=== PATIENT | male | born 1955 | race African-American/Black ===

== ENCOUNTER 2016-07-26 10:27 | Emergency (ER) | payer OTHER ==
[2016-07-26 10:39] VITALS: RESP 16
--- NOTE | 2016-07-26 11:12 | ED ---
General Adult HPI - General Chief complaint: Extremity Injury, Lower Stated complaint: BOTH KNEES INJURED IN FALL - [facility] Time Seen by Provider: 07/26/16 10:45 Source: patient, RN notes reviewed Mode of arrival: wheelchair Limitations: no limitations - History of Present Illness Initial comments: Patient is 61-year-old male who presents emergency room today with chief complaint of fall occurred yesterday. He does note that he was at work when he missed the last step going down some stairs fell down onto both the right and left knee. Patient does admit to increased pain to the right knee with some swelling. States worse with both flexion and extension. Patient admits to some mild pain that began this morning to the left knee as well. Patient denies any head injury or loss conscious. He denies any other complaints or associated symptoms. Patient denies any recent fever, chills, shortness of breath, chest pain, back pain, abdominal pain, nausea or vomiting, numbness or tingling, dysuria or hematuria, constipation or diarrhea, headaches or visual changes, or any other complaints. - Related Data Home Medications Medication Instructions Recorded Confirmed Atenolol 25 mg PO DAILY 07/26/16 07/26/16 Atorvastatin [Lipitor] 20 mg PO DAILY 07/26/16 07/26/16 Insulin Detemir [Levemir Flextouch] 14 units SQ HS 07/26/16 07/26/16 Multivitamin [Men's Multi-Vitamin] 1 each PO DAILY 07/26/16 07/26/16 Pioglitazone [Actos] 30 mg PO DAILY 07/26/16 07/26/16 amLODIPine BES/OLMESARTAN MED 1 tab PO DAILY 07/26/16 07/26/16 [Roger 5-20 mg Tablet] glipiZIDE XL [Glucotrol Xl] 10 mg PO DAILY 07/26/16 07/26/16 Allergies Allergy/AdvReac Type Severity Reaction Status Date / Time No Known Allergies Allergy Verified 07/26/16 10:39 Review of Systems ROS Statement: Those systems with pertinent positive or pertinent negative responses have been documented in the HPI. ROS Other: All systems not noted in ROS Statement are negative. Past Medical History Past Medical History: Diabetes Mellitus, Hyperlipidemia, Hypertension History of Any Multi-Drug Resistant Organisms: None Reported Past Surgical History: No Surgical Hx Reported Past Psychological History: No Psychological Hx Reported Smoking Status: Never smoker Past Alcohol Use History: Rare Past Drug Use History: None Reported General Exam - General Exam Comments Initial Comments: General: The patient is awake and alert, in no distress, and does not appear acutely ill. Neck: The neck is supple, there is no tenderness or JVD. Cardiovascular: There is a regular rate and rhythm. No murmur, rub or gallop is appreciated. Respiratory: Lungs are clear to auscultation, respirations are non-labored, breath sounds are equal. No wheezes, stridor, rales, or rhonchi. Musculoskeletal: Patient does have mild swelling and effusion to the right knee. Mild abrasion anteriorly. Superficial no active bleeding. Patient shows good range of motion both flexion and extension -10-15 with flexion. Able to fully extend. Shows full range of motion of the left knee. Sensations are intact pulses equal bilaterally 2+. Strength is 5/5 bilaterally. Patient does have tenderness to anterior and medial aspects of the right knee. Tender with valgus and varus stress. No bony tenderness to the left knee on exam. Negative valgus varus stress. Negative Eliezer's bilaterally. Neurological: A&O x 3. CN II-XII intact, There are no obvious motor or sensory deficits. Coordination appears grossly intact. Speech is normal. Skin: Skin is warm and dry and no rashes or lesions are noted. Psychiatric: Normal mood and affect. Limitations: no limitations Course Vital Signs 07/26/16 10:33 Temperature 98.1 F Pulse Rate 78 Respiratory 16 Rate Blood Pressure 119/72 O2 Sat by Pulse 99 Oximetry Medical Decision Making - Medical Decision Making Patient's x-rays reviewed shows no acute fracture dislocation. Results were discussed with the patient. Patient does have tenderness with both valgus and varus stress of the right knee. Patient will be placed in a knee immobilizer and given a prescription for crutches. Advised follow-up with orthopedics. Advised to continue ice elevate the affected area. Advised return if any symptoms increase or worsen. Patient states understanding. Disposition Clinical Impression: Knee injury Disposition: HOME SELF-CARE Condition: Good Instructions: Knee Pain (ED) Additional Instructions: Please follow-up with orthopedics over the next 2 days. Please use knee immobilizer up and moving around with crutches with weightbearing as tolerated. Please continue to ice elevate the affected area and return here to emergency room if any symptoms increase or worsen or for any other concerns. Referrals: Pretty Wagner MD [Primary Care Provider] - 1-2 days Edson Villafana MD [Medical Doctor] - 1-2 days Time of Disposition: 11:43
--- NOTE | 2016-07-26 11:34 | XR ---
EXAMINATION TYPE: XR knee complete bilateral DATE OF EXAM: 07/26/2016 11:30 AM CLINICAL HISTORY: Fall injury with bilateral knee pain TECHNIQUE: Three views of the bilateral knees are obtained. COMPARISON: None. FINDINGS: There is no acute fracture/dislocation evident in either knee. There is mild to moderate t ricompartment joint space loss and spurring. There is prominent spurring from superior and inferior aspects of patella at distal quadriceps tendon attachment and proximal patellar attachment in both kn ees, right worse than left. The overlying soft tissue appears unremarkable bilaterally. IMPRESSION: There is no acute fracture or dislocation in either knee.
[2016-07-26 11:53] VITALS: BP 140/73; PULSE 74; TEMP 97.8
== END 2016-07-26 12:04 | disposition home or self-care (01) ==
LOC: EC 10:27
DX: S89.92XA Unspecified injury of left lower leg, initial encounter (principal); S89.91XA Unspecified injury of right lower leg, initial encounter; E11.9 Type 2 diabetes mellitus without complications; I10 Essential (primary) hypertension; E78.5 Hyperlipidemia, unspecified; W10.9XXA Fall (on) (from) unspecified stairs and steps, initial encounter; Z79.4 Long term (current) use of insulin; Z79.899 Other long term (current) drug therapy
CPT/HCPCS: 99283; 73562; L1830